=== PATIENT | male | born 1930 | race Caucasian/White ===

== ENCOUNTER → 2022-01-19 | Outpatient (CLI) | payer MEDICARE, BC ==
[~2022-01-19] MED LIST: BARIUM SULFATE 40% (APPLE) 148 GM PWD. PO ONE
--- NOTE | 2022-01-19 14:47 | RAD ---
EXAMINATION: Modified barium swallow evaluation with Speech Pathology INDICATION: Dysphagia COMPARISON: None PROCEDURE DETAILS: Performing physician: Joel Betancourt DO The patient was positioned sitting in a lateral position on the fluoroscopic table. They were given t hin liquid, nectar thick liquid, honey thick liquid, mixed consistency food, and solid food coated wi th barium and visipaque. Fluoro time: 1.1 minutes Fluoro dose: 1.5 mGy FINDINGS: No aspiration or laryngeal penetration was visualized with any consistency of provided food or liquid . No other significant fluoroscopic findings. IMPRESSION: 1. No aspiration or penetration with administered food or liquid. 2. Please refer to speech pathology report for feeding recommendations. Electronically signed by: Joel Betancourt DO (01/19/2022 2:45 PM) [id number]
== END ==
LOC: RAD 13:00
PROVIDERS: ATTEND Family Medicine
DX: R13.10 Dysphagia, unspecified (principal)
CPT/HCPCS: 74230; 92611-GN